=== PATIENT | male | born 1950 | race Caucasian/White ===

== ENCOUNTER → 2017-05-19 | Outpatient (CLI) | payer OTHER ==
[~2017-05-19] MED LIST: ALLO300T PO; ASPI-515 PO; ATEN50TA41 PO; DOCU-30 PO; GING550C PO; HYDR-3240 PO; KRIL500C PO; LOSA50TA6 PO; METH4TAB7 PO; MULT-115 PO; OMNIPAQUE 350 MG/ML, 100ML BOTTLE ONE; SIMV40TA3 PO; TURMERIC PO; UBID30CA9 PO
== END | disposition home or self-care (01) ==
LOC: CFH 09:52
PROVIDERS: ATTEND Urology
DX: C61 Malignant neoplasm of prostate (principal); R97.21 Rising PSA following treatment for malignant neoplasm of prostate; M43.06 Spondylolysis, lumbar region; I70.0 Atherosclerosis of aorta
CPT/HCPCS: 74177; 82565; Q9967